=== PATIENT | male | born 1990 | race Caucasian/White ===

== ENCOUNTER 2024-11-03 00:32 | Day surgery (SDC) | payer BC, SELFPAY ==
[2024-08-12 14:09] VITALS: BMI 24.5
[2024-10-27 11:02] VITALS: BMI 24.5
--- OUTSIDE RECORDS SUMMARY | 2024-11-03 00:35 | XMS_ITS | Clinical Summary ---
Author Organization [address] Address [address] [place] [address] [place] [address] Care Team Providers Care Satellite Installation Technician Name Role Phone Quynh Stevens Primary Care Provider + Allergies No known active allergies Medications No known medications Active Problems Problem Noted Date Diagnosed Date Physical exam, annual 02/26/2024 Assessment & Plan (02/26/2024 7:47 AM CDT): Declines labs Continue healthy habits, diet/exercise Will refer to GI for possible early c-scope given family history Immunizations reviewed F/u annually Immunizations Immunization Administration Dates Next Due DTP 08/18/1996, 3,1991,1991,1 09/01/1990 Hep B, Adolescent or Pediatric 11/20/1995,1994,12/25/1994 HiB 09/14/1992,1991,1991 ,1991 Influenza, Unspecified 04/22/2023(Deferr ed: Patient decision),04/22/2022(Deferred: Patient decision) MMR 08/18/1996,09/14/1992 OPV 08/18/1996,12/28/1992,1991 ,1991 Tdap 02/20/2019,02/27/2006 Medical History Medical History Date Comments Varicella Family History Medical History Relation Name Comments No Known Problems Brother Hyperlipidemia Father Hypertension Father No Known Problems Maternal Grandfather No Known Problems Maternal Grandmother No Known Problems Mother Cancer Paternal Grandfather Colon cancer Paternal Grandmother Diabetes Paternal Grandmother Hyperlipidemia Paternal Grandmother Hypertension Paternal Grandmother Osteoporosis Paternal Grandmother Skin cancer Paternal Grandmother Relation Name Status Comments Brother Alive Father Alive Maternal Grandfather Maternal Grandmother Mother Alive Paternal Grandfather Paternal Grandmother Social History Tobacco Use Types Packs/Day Years Used Date Smoking Tobacco: Never Smokeless Tobacco: Never AUDIT-C Answer Date Recorded Q1: How often do you have a drink containing alcohol? 4 or more times a week 02/26/2024 Q2: How many drinks containi ng alcohol do you have on a typical day when you are drinking? 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 Gender Identity Not on file Sexual Orientation Not on file Obstetrics History Last Filed Vital Signs Vital Sign Reading Time Taken Comments Blood Pressure 110/70 02/26/2024 7:09 AM CDT Pulse 78 02/26/2024 7:09 AM CDT Temperature 36.1 C (97 F) 02/26/2024 7:09 AM CDT Respiratory Rate 16 02/26/2024 7:09 AM CDT Oxygen Saturation 98% 02/26/2024 7:09 AM CDT Inhaled Oxygen Concentration - - Weight 85.7 kg (189 lb) 02/26/2024 7:09 AM CDT Height 185.4 cm (6' 1 ) 02/26/2024 7:09 AM CDT Body Mass Index 24.94 02/26/2024 7:09 AM CDT Plan of Treatment Health Maintenance Due Date Last Done Comments Hepatitis C Screening 1991 Depression Screening 02/25/2025 02/26/2024, 02/26/20 24 Regular Well Visit/Exam 18-64 02/25/2025 02/26/2024 Influenza Vaccine (Season Ended) 2025 DTaP/Tdap/Td Vaccine (8 - Td or Tdap) 02/20/2029 02/20/2019, 02/27/2006, 08/18/1996, Additional history exists Hepatitis B Screening Completed 11/20/1995 , 02/08/1995, 12/25/1994 HPV Vaccines Aged Out No longer eligi ble based on patient's age to complete this topic Pneumococcal vaccine <65 Aged Out No longer eligible based on patient's age to complete this topic Insurance [facility] Care Teams Satellite Installation Technician Relationship Specialty Start Date End Date Quynh Stevens PA [address] [place] [address] PCP - General Family Medicine 02/26/24
--- OUTSIDE RECORDS SUMMARY | 2024-11-03 00:35 | XMS_ITS | Continuity of Care Document ---
Author Organization [facility] Address [address] [place] [address] Phone Care Team Providers Care Tablet Repair Name Role Phone Conversion MD, Doctor Unavailable Unavailabl e Medications Medication Instructions Dosage Effective Dates (start - stop) Status Comments ZYRTEC 10MG TABS 1 QD - Active RHINOCORT AQUA NASAL SPRAY 2 QD - Active ALBUTEROL 90 MCG INHALER 2 Q 4HR - Active SINGULAIR 5MG TABLET CHEW 1 QPM - Active INSPIREASE KITS 1 DIRECTE - Active RHINOCORT AQUA NASAL SPRAY 1 QD - No Longer Active SINGULAIR 5MG TABLET CHEW 1 QPM - No Longer Active RHINOCORT AQUA 32MCG SPRAY(S) 1 QD - No Longer Active SINGULAIR 5MG TABLET CHEW 1 QPM - No Longer Active ALBUTEROL 90MCG PUFFS 2 Q 4HR - No Longer Active SINGULAIR 5MG TABS 1 QPM - No Longer Active RHINOCORT 32MCG PUFFS 2 QD - No Longer Active Advance Directives Directive Yes / No Effective Date File Name No Information Encounters Encounter Description Practice Location Reason(s) For Visit Diagnoses Date Provider Providers Copied on Encounter [facility], [address], [place], [place], [id number], [place] tel:[phone] Conversion Department No Information 1 Conversion Doctor. [address] [place] [address], [id number], . Family History Family Member Type Diagnosis Age At Onset No Information Payers Payer name Insurance type Covered green party ID Authoriza tion(s) No Information Social History Type Description Quantity Date Captured Comments Sex Male Smoking Status No Information Chief Complaint And Reason For Visit No Information Reason For Referral Reason For Referral No Information History Of Present Illness Encounter Date Complaint History Of Prese nt Illness No Information Functional Status Date Functional Assessmen t No Information Instructions Date Instruction Additional Infor mation No Information Assessments Type Assessment Date No Information Patient Care Teams Name Effective Dates (start - stop) Status Members No Information
--- OUTSIDE RECORDS SUMMARY | 2024-11-03 00:35 | XMS_ITS | Clinical Summary ---
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 Gender Identity Not on file Sexual Orientation Not on file Plan of Treatment Health Maintenance Due Date Last Done Comments Annual Physical 1994 Hepatitis C 2009 DTaP, Tdap and Td Vaccines (7 - Td or Tdap) 02/28/2016 02/27/2006, 08/18/1996, 12/28/1992, Additional history exists COVID-19 Vaccine ( season) 2024 Hepatitis B Vaccines Completed 11/20/1995, 02/08/1995, 12/25/1994 HPV Vaccines Aged Out No longer eligi ble based on patient's age to complete this topic Meningococcal B Vaccine Aged Out No l onger eligible based on patient's age to complete this topic Meningococcal Vaccine Aged Out No roddy hector eligible based on patient's age to complete this topic Pneumococcal Vaccine: Pediatrics (0 to 5 Years) and At-Risk Patients (6 to 49 Years) Aged Out No longer eligible based on patient's age to complete this topic RSV Immunizations Under 20 Months Aged Out No longer eligible based on patient's age to complete this topic Insurance [facility] [place] [id number] [facility] Care Teams Food Packer Relationship Specialty Start Date End Date Non-Staff, Provider PCP - General UNKNOWN PHYSICIAN SPECIALTY 09/28/23
--- OUTSIDE RECORDS SUMMARY | 2024-11-03 00:35 | XMS_ITS | Referral Summary ---
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
--- OUTSIDE RECORDS SUMMARY | 2024-11-03 00:35 | XMS_ITS | Clinical Summary ---
Demographics Address [address] [place] [address] Home Phone Preferred Language Irish Marital Status Latter Day Affiliation Unknown Race White Ethnic Group Not or Lati no Author Organization [facility] Address [address] [place] [address] Care Team Providers Care Installer Interior Assemblies Name Role Phone Unavailable Primary Care Provider Unavailabl e Source Comments [facility],non-owned Affiliates and Associated Physician Practices is amultiple site organization consisting of ambulatory clinics and hospital sitesin [place], [place], [place] and [place]. This disclosure is being madepursuant to the Care Everywhere program and may not contain all information available regarding this patient. Last updated 18.[facility] Allergies No known active allergies Medications * Be aware that medications may not be up to date on this document. Alwaysverify current medications with the patient. azithromycin (ZITHROMAX) 250 MG tablet Take 2 tablets today. 1 tablet on day 2-5 6 tablet 09/04/2018 Active benzonatate (TESSALON PERLES) 100 MG capsule Take 1 capsule by mouth 3 times daily as needed for Cough 30 capsule 09/04/2018 Active Active Problems No known active problems Social History Tobacco Use Types Packs/Day Years Used Date Smoking Tobacco: Never Smokeless Tobacco: Never Sex and Gender Information Value Date Recorded Sex Assigned at Not on file Legal Sex Male 7:24 AM GARMENT TURNER Gender Identity Not on file Sexual Orientation Not on file Last Filed Vital Signs Vital Sign Reading Time Taken Comments Blood Pressure 122/80 09/04/2018 8:19 AM GARMENT TURNER Pulse 107 09/04/2018 8:19 AM GARMENT TURNER Temperature 36.4 C (97.5 F) 09/04/2018 8:19 AM GARMENT TURNER Respiratory Rate 20 09/04/2018 8:19 AM GARMENT TURNER Oxygen Saturation 98% 09/04/2018 8:19 AM GARMENT TURNER Inhaled Oxygen Concentration - - Weight 91.2 kg (201 lb) 09/04/2018 8:19 AM GARMENT TURNER Height 185.4 cm (6' 1 ) 09/04/2018 8:19 AM GARMENT TURNER Body Mass Index 26.52 09/04/2018 8:19 AM GARMENT TURNER Plan of Treatment Health Maintenance Due Date Last Done Comments HIV SCREENING 2006 HEPATITIS C SCREENING 04/25/2009 DTAP/TDAP/TD VACCINES (1 - Tdap) 2010 HEPATITIS B VACCINE (1 of 3 - 19+ 3-dose series) 2010 COVID-19 VACCINE (1 - 2023-2 5 season) 2024 DEPRESSION SCREENING 07/23/2024 INFLUENZA VACCINE (Season Ended) 2025 ZOSTER VACCINE (1 of 2) 2041 HIB VACCINE Aged Out No longer eligi ble based on patient's age to complete this topic HPV VACCINE Aged Out No longer eligi ble based on patient's age to complete this topic MENINGOCOCCAL (Group B) VACC INE SHARED DECISION-MAKING Aged Out No longer eligibl e based on patient's age to complete this topic MENINGOCOCCAL GROUPS A/C/Y/W VACCINE Aged Out No longer eligible b ased on patient's age to complete this topic PNEUMOCOCCAL VACCINE Aged Out No long er eligible based on patient's age to complete this topic Insurance [employer]
[2024-11-03 10:31] VITALS: BP 118/85; PULSE 65; RESP 20; TEMP 36.6; O2SAT 99; BMI 25.2
[2024-11-03] MEDS: LACTATED RINGERS 1,000 ML 150 ML IV CONT (10:42)
--- NOTE | 2024-11-03 10:57 | WPDANESEPPF ---
Anes - Initial Pre Proc Eval Procedure: Operation Date: 11/03/24 11:30 Proposed Procedures p Colonoscopy - Mikael Aguirre MD Date/Time: 11/03/24 10:57 Surgeon: Mikael Aguirre MD Pre Op Diagnosis: Family HX of malignant neoplasm of digestive organ Patient Data Age: 34 Gender: M Height: 1.83 m Weight: 84.2 kg Last Vital Signs Temp 97.9 F 11/03/24 10:31 Pulse 65 11/03/24 10:31 Resp 20 11/03/24 10:31 BP 118/85 11/03/24 10:31 Pulse Ox 99 11/03/24 10:31 O2 Del Method Room Air 11/03/24 10:31 Allergies Allergy/AdvReac Type Severity Reaction Status Date / Time No Known Allergies Allergy Verified 11/03/24 10:30 Home Medications ?Medication ?Instructions ?Recorded ?Confirmed ?Type No Home Medications 08/12/24 10/27/24 History Patient hx anesthesia problems: none Family hx anesthesia problems: none Results Review: All pre-operative results and documents have been reviewed as part of the pre-operative evaluation. [facility] Social History Social History Smoking status: Never smoker Alcohol intake: current Drinks per week: 4 Substance use: never Substance use type: does not use Living arrangements: with family Spiritual care concerns: No Anes - Eval Final PreProcedure Day of Procedure 11/03/24 10:57 Patient weight: normal Heart: regular rate and rhythm Lungs: clear to auscultation Airway: Mallampati scale class II Neurological: alert and oriented Last oral intake: >/= 8 hours ASA classification: I Emergent: no Anesthetic plan: proceed Anesthesia type and monitoring: general GIVS and standard monitoring Results Review: All pre-operative results and documents have been reviewed as part of the pre-operative evaluation. Informed Consent: The patient's anesthetic plan and its attendant risks and benefits were discussed with the patient/family/POA. Questions were solicited and answers provided to the satisfaction of the patient/family/POA.
--- NOTE | 2024-11-03 11:00 | PM.HPGS ---
History of Present Illness History of Present Illness Consent: Risks, benefits, and alternatives have been discussed and questions answered. Patient agrees to proceed with procedure. Chief complaint: Family HX of malignant neoplasm of digestive organ Narrative: Arnel Sanchez is a 34 year old male here for first screening colonoscopy, father had colon polyp, grandmother had colon cancer Review of Systems Review of Systems: All systems reviewed & are unremarkable except as noted in HPI and below PMFSH Past Medical History Medical History (Updated 11/03/24 @ 11:02 by Mikael Aguirre MD) Colon cancer screening Social History Social History Smoking status: Never smoker Alcohol intake: current Drinks per week: 4 Substance use: never Substance use type: does not use Living arrangements: with family Spiritual care concerns: No Meds Home Medications and Allergies Home Medications ?Medication ?Instructions ?Recorded ?Confirmed ?Type No Home Medications 08/12/24 10/27/24 History Allergies Allergy/AdvReac Type Severity Reaction Status Date / Time No Known Allergies Allergy Verified 11/03/24 10:30 Vital Signs Vital Signs - 24 hr 11/03/24 10:31 Temperature 97.9 F Pulse Rate 65 Respiratory Rate 20 Blood Pressure 118/85 Pulse Oximetry 99 Oxygen Delivery Room Air Exam Const: General: comfortable and no acute distress HENMT: Face/Nose/Sinus: Normal nares present Eyes: General: appearance normal, both eyes and all related structures Neck: Neck: no JVD Resp: Auscultation: clear to auscultation bilaterally Cardio: Rate: regular rate Rhythm: regular rhythm GI: Inspection: non-distended GI Palp: Yes Soft to palpation Skin: General skin exam: normal color Neuro: General: gait normal Speech: normal speech Extrem: General: normal to inspection Psych: Mental Status: mental status grossly normal Assessment and Plan Assessment and plan (1) Colon cancer screening: Code(s): Z12.11 - Encounter for screening for malignant neoplasm of colon Status: Acute Assessment and Plan: colonoscopy
[2024-11-03 11:15] VITALS: BP 87/59; PULSE 72; RESP 17; O2SAT 97
[2024-11-03 11:25] VITALS: BP 105/69; PULSE 67; RESP 21; O2SAT 100
[2024-11-03 11:35] VITALS: BP 107/73; PULSE 65; RESP 17; O2SAT 100
== END 2024-11-03 11:39 | disposition home or self-care (01) ==
PROVIDERS: PCP Physician Assistant; Referring Provider Physician Assistant; Visit Provider Internal Medicine Gastroenterology
PROC: 0DJD8ZZ Inspection of Lower Intestinal Tract, Via Natural or Artificial Opening Endoscopic (ICD-10-PCS; CPT 45378; principal; 2024-11-03 11:30)
DX: Z12.11 Encounter for screening for malignant neoplasm of colon (principal); D12.5 Benign neoplasm of sigmoid colon; K64.8 Other hemorrhoids; Z83.719 Family history of colon polyps, unspecified; Z80.0 Family history of malignant neoplasm of digestive organs
CPT/HCPCS: 45385; 88305; J2003; J2704; J7120